=== PATIENT | male | born 1950 | race Hispanic/Latino ===

== ENCOUNTER 2023-01-26 12:16 | Emergency (ER) | payer MEDICARE ==
[~2023-01-26] VITALS: Ht 167.6 cm; Wt 72.6 kg
[2023-01-26 12:24] VITALS: O2SAT 98
== END 2023-01-26 13:29 | disposition home or self-care (01) ==
LOC: ER 12:20
DX: R06.00 Dyspnea, unspecified (principal); I12.0 Hypertensive chronic kidney disease with stage 5 chronic kidney disease or end stage renal disease; E11.22 Type 2 diabetes mellitus with diabetic chronic kidney disease; N18.6 End stage renal disease; Z99.2 Dependence on renal dialysis; E78.5 Hyperlipidemia, unspecified; Z85.46 Personal history of malignant neoplasm of prostate
CPT/HCPCS: 99282